=== PATIENT | female | born 1950 | race Caucasian/White ===

== ENCOUNTER → 2016-08-02 | Outpatient (CLI) | payer MEDICARE, OTHER ==
[~2016-08-02] MED LIST: CALC500T49 PO; LIPI20TA PO; MULT1TAB10 PO; VITA500046 PO
[2016-08-02 17:34] LABS: CALCIUM LEVEL 9.4 MG/DL (8.8-10.2)
== END ==
LOC: M WUC 12:34
PROVIDERS: ATTEND Physician Assistant Medical
DX: M81.0 Age-related osteoporosis without current pathological fracture (principal); E55.9 Vitamin D deficiency, unspecified

== ENCOUNTER → 2016-08-10 | Outpatient (CLI) | payer MEDICARE, OTHER ==
[~2016-08-10] VITALS: Ht 152.4 cm; Wt 57.6 kg
[~2016-08-10] MED LIST changes: +GLYCOPYRROLATE INJ 0.2 MG/ML 2 ML VIAL As Ordered ONE; +LIDOCAINE 2% INJ 100 MG/5 ML SDV (FOR ANES.) As Ordered ONE; +LR 1,000 ML IV SCH; +PROPOFOL 200 MG/20 ML VIAL As Ordered ONE
[2016-08-10 13:10] VITALS: BP 136/81
--- NOTE | 2016-08-10 13:15 | ROOR ---
Patient Name: Kalee Monroe Procedure Date: 08/10/2016 12:15 PM Date of : 1950 Age: 65 Room: [facility] Gender: Female Note Status: Finalized Procedure: Colonoscopy Indications: Screening for colorectal malignant neoplasm, Last colonoscopy: 2010 Providers: Aldair Suarez MD Referring MD: Светлана Abbott DO Requesting Provider: Medicines: Monitored Anesthesia Care Complications: No immediate complications. Procedure: Pre-Anesthesia Assessment: - Prior to the procedure, a History and Physical was performed, and patient medications and allergies were reviewed. The patient is competent. The risks and benefits of the procedure and the sedation options and risks were discussed with the patient. All questions were answered and informed consent was obtained. Patient identification and proposed procedure were verified by the physician, the nurse and the anesthesiologist in the procedure room. Mental Status Examination: alert and oriented. Airway Examination: normal oropharyngeal airway and neck mobility. CV Examination: regular rate and rhythm. Prophylactic Antibiotics: The patient does not require prophylactic antibiotics. Prior Anticoagulants: The patient has taken no previous anticoagulant or antiplatelet agents. ASA Grade Assessment: II - A patient with mild systemic disease. After reviewing the risks and benefits, the patient was deemed in satisfactory condition to undergo the procedure. The anesthesia plan was to use monitored anesthesia care (MAC). Immediately prior to administration of medications, the patient was re-assessed for adequacy to receive sedatives. The heart rate, respiratory rate, oxygen saturations, blood pressure, adequacy of pulmonary ventilation, and response to care were monitored throughout the procedure. The physical status of the patient was re-assessed after the procedure. The was introduced through the anus and advanced to the cecum, identified by appendiceal orifice and ileocecal valve. The colonoscopy was performed without difficulty. The patient tolerated the procedure well. The quality of the bowel preparation was good. Findings: The perianal exam findings include non-thrombosed external hemorrhoids. The colon (entire examined portion) appeared normal. Impression: - Non-thrombosed external hemorrhoids found on perianal exam. - The entire examined colon is normal. - No specimens collected. Recommendation: - Discharge patient to home. - Resume previous diet. - Continue present medications. - Repeat colonoscopy in 5-10 years for screening purposes. Aldair Suarez MD 08/10/2016 1:15:07 PM Number of Addenda: 0 Note Initiated On: 08/10/2016 12:15 PM Estimated Blood Loss: Estimated blood loss: none.
== END | disposition home or self-care (01) ==
LOC: M OPP 10:47
PROVIDERS: ATTEND Surgery
DX: Z12.11 Encounter for screening for malignant neoplasm of colon (principal); K64.4 Residual hemorrhoidal skin tags; E78.5 Hyperlipidemia, unspecified; E04.1 Nontoxic single thyroid nodule; K44.9 Diaphragmatic hernia without obstruction or gangrene; K59.00 Constipation, unspecified; R10.9 Unspecified abdominal pain; R12 Heartburn; M81.0 Age-related osteoporosis without current pathological fracture; Z78.0 Asymptomatic menopausal state; F41.9 Anxiety disorder, unspecified; R06.83 Snoring; Z88.1 Allergy status to other antibiotic agents; Z88.8 Allergy status to other drugs, medicaments and biological substances; Z79.899 Other long term (current) drug therapy
CPT/HCPCS: 99156; 99157; G0121

== ENCOUNTER → 2016-08-24 | Outpatient (CLI) | payer MEDICARE, OTHER ==
[~2016-08-24] MED LIST changes: -GLYCOPYRROLATE INJ 0.2 MG/ML 2 ML VIAL As Ordered ONE; -LIDOCAINE 2% INJ 100 MG/5 ML SDV (FOR ANES.) As Ordered ONE; -LR 1,000 ML IV SCH; -PROPOFOL 200 MG/20 ML VIAL As Ordered ONE
== END ==
LOC: M WUC 13:04
PROVIDERS: ATTEND Family Medicine
DX: R53.81 Other malaise (principal)

== ENCOUNTER → 2017-02-02 | Outpatient (REF) | payer MEDICARE, OTHER ==
[2017-02-02 13:18] LABS: CALCIUM LEVEL 10.2 MG/DL (8.8-10.2)
== END ==
LOC: M LABDRAW1 11:30
PROVIDERS: ATTEND Internal Medicine Endocrinology, Diabetes & Metabolism
DX: M81.0 Age-related osteoporosis without current pathological fracture (principal)

== ENCOUNTER → 2017-08-17 | Outpatient (CLI) | payer MEDICARE, OTHER ==
[2017-08-17 12:08] LABS: CALCIUM LEVEL 9.7 MG/DL (8.8-10.2)
== END ==
LOC: M LAB 10:52
DX: M81.0 Age-related osteoporosis without current pathological fracture (principal)
CPT/HCPCS: 82310

== ENCOUNTER → 2017-12-08 | Outpatient (REF) | payer MEDICARE, OTHER | LOC: M LAB REF 15:36 | DX: L08.9 Local infection of the skin and subcutaneous tissue, unspecified (principal) | CPT/HCPCS: 87186 ==

== ENCOUNTER → 2018-02-27 | Outpatient (CLI) | payer MEDICARE, OTHER ==
[2018-02-27 13:17] LABS: CALCIUM LEVEL 9.5 MG/DL (8.8-10.2)
[2018-02-27 13:33] LABS: TOTAL 25(OH) VITAMIN D 44.1 NG/ML (30.0-100.0)
== END ==
LOC: M WUC 10:43
DX: M81.0 Age-related osteoporosis without current pathological fracture (principal); E55.9 Vitamin D deficiency, unspecified
CPT/HCPCS: 82310

== ENCOUNTER → 2018-08-24 | Outpatient (REF) | payer MEDICARE, OTHER | LOC: M LABDRAW1 16:02 → M LAB REF 16:02 | PROVIDERS: ATTEND Internal Medicine Endocrinology, Diabetes & Metabolism | DX: M81.0 Age-related osteoporosis without current pathological fracture (principal) ==

== ENCOUNTER → 2019-02-19 | Outpatient (CLI) | payer MEDICARE, OTHER ==
[2019-02-19 16:35] LABS: CALCIUM LEVEL 10.1 MG/DL (8.8-10.2)
[2019-02-19 16:47] LABS: TOTAL 25(OH) VITAMIN D 48.8 NG/ML (30.0-100.0)
== END ==
LOC: M WUC 12:36
PROVIDERS: ATTEND Nurse Practitioner Family
DX: M81.0 Age-related osteoporosis without current pathological fracture (principal)

== ENCOUNTER → 2020-10-27 | Outpatient (CLI) | payer MEDICARE, BC ==
--- NOTE | 2020-10-27 14:24 | REP ---
INDICATION: RT HIP TROCHANTERIC BURSITIS. COMPARISON: Comparison bilateral hip MRI exam is from January 22, 2015.. TECHNIQUE: Large [id number] coronal T1 and fat sat T2 images of both hips are acquired. Following this, smaller [id number] high-resolution images of the right hip were acquired in all 3 planes. FINDINGS: Cortical and medullary bone signal intensity are normal in the proximal femurs bilaterally. There is no evidence to suggest avascular necrosis. Diffuse cellular marrow changes seen. No bony destructive lesion is seen in the bony pelvic rim. There is a small subcortical cyst in the head neck junction region on the left. This is unchanged. Head neck junction morphology is otherwise normal. T2 weighted scans show no evidence of significant hip joint effusion on either side. There is however a sliver of fluid in the Sara trochanteric bursa and some adjacent T2 hyperintensity is seen on the right consistent with tendon 0 bursitis changes. This is somewhat more prominent than on the 2015 study. There is no evidence of acetabular labral cartilage tear. No juxta-articular cyst or mass is seen. Study is otherwise unremarkable. IMPRESSION: Sara trochanteric bursal fluid collection with some adjacent edema consistent with tendon 0 bursitis changes. This is more pronounced than on the 2015 prior study. No bony destructive lesion is seen. No evidence of labral tear. <Electronically signed by Logan iHll > 10/27/20 [id number]
== END ==
LOC: M RAD 12:36
PROVIDERS: ATTEND Orthopaedic Surgery
DX: M70.61 Trochanteric bursitis, right hip (principal)

== ENCOUNTER → 2021-01-06 | Outpatient (CLI) | payer MEDICARE, BC ==
--- NOTE | 2021-01-06 13:16 | DEXAMM ---
INDICATION: AGE RELATED OSTEOPOROSIS W/O CURRENT PATHOLOGICAL FX. COMPARISON: Comparison study December 28, 2018. TECHNIQUE: Bone density was measured using dual-energy x-ray absorptionmetry (DEXA). FINDINGS: AP SPINE L1-L4 BMD 1.008 g/cm2 Young Adult T-Score -1.5 Age Matched Z-Score 0.2. LT FEMUR, TOTAL BMD 0.796 g/cm2 Young Adult T-Score -1.7 Age Matched Z-Score -0.1. LT NECK BMD 0.659 g/cm2 Young Adult T-Score -2.7 Age Matched Z-Score -0.9. RT FEMUR, TOTAL BMD 0.844 g/cm2 Young Adult T-Score -1.3 Age Matched Z-Score 0.3. RT NECK BMD 0.739 g/cm2 Young Adult T-Score -2.2 Age Matched Z-Score -0.4. IMPRESSION: There is low bone density of the spine. There is osteoporosis of the left hip. There is low bone density of the right hip. The density of the spine has increased 19.4% since the initial exam on December 19, 2012. The density of the spine increased 2.0% since most recent exam on December 28, 2018. The density of the left hip has increased 11.2% since initial exam on December 23, 2014. The density of the left hip has increased 1.1% since most recent exam on December 28, 2018. The density of the right hip has increased 9.3% since the initial exam on December 23, 2014. The density of the right hip has increased 2.3% since the most recent exam on December 28, 2018. FOLLOW-UP: Recommendation for the next bone density exam: 2 years. <Electronically signed by Logan Hill > 01/06/21 [id number]
== END ==
LOC: M WHC 11:15
PROVIDERS: ATTEND Internal Medicine Endocrinology, Diabetes & Metabolism
DX: M81.0 Age-related osteoporosis without current pathological fracture (principal); M85.851 Other specified disorders of bone density and structure, right thigh; M85.88 Other specified disorders of bone density and structure, other site

== ENCOUNTER 2024-06-20 11:00 | Emergency (ER) | payer MEDICARE, BC ==
[~2024-06-20] VITALS: Ht 149.9 cm; Wt 56.8 kg
[2024-06-20 12:03] LABS: HEMATOCRIT 42.8 % (36.0-47.0); HEMOGLOBIN 14.9 g/dl (12.0-15.5); MEAN CORPUSCULAR HEMOGLOBIN 31.3 pg (27.0-33.0); MEAN CORPUSCULAR HGB CONC 34.8 g/dl (32.0-36.5); MEAN CORPUSCULAR VOLUME 89.9 fl (80.0-96.0); PLATELET COUNT, AUTOMATED 349 10^3/uL (150-450); RED BLOOD COUNT 4.76 10^6/uL (4.00-5.40); WHITE BLOOD COUNT 8.9 10^3/uL (4.0-10.0)
[2024-06-20] MEDS: ACETAMINOPHEN *IV* 1,000 MG in IV 1 EA IV ONE (12:18)
[2024-06-20 12:28] LABS: BLOOD UREA NITROGEN 12 MG/DL (9-23); CALCIUM LEVEL 9.8 MG/DL (8.3-10.6); CARBON DIOXIDE LEVEL 26 MMOL/L (20-31); CHLORIDE LEVEL 107 MMOL/L (98-107); CREATININE FOR GFR 0.77 MG/DL (0.55-1.30); GLOMERULAR FILTRATION RATE > 60.0 (>39); GLUCOSE, FASTING 102 MG/DL (74-106); POTASSIUM SERUM 4.2 MMOL/L (3.5-5.1); SODIUM LEVEL 145 MMOL/L (136-145)
[2024-06-20] MEDS: KETOROLAC 30 MG/ML 1ML VIAL IV ONE (17:02)
[2024-06-20 17:56] VITALS: BP 154/75; TEMP 97; O2SAT 97
== END 2024-06-20 17:59 | disposition home or self-care (01) ==
LOC: EDBD 11:00 → M ED 11:00
DX: S82.62XA Displaced fracture of lateral malleolus of left fibula, initial encounter for closed fracture (principal); W10.8XXA Fall (on) (from) other stairs and steps, initial encounter; Y92.009 Unspecified place in unspecified non-institutional (private) residence as the place of occurrence of the external cause; Y93.01 Activity, walking, marching and hiking; Y99.9 Unspecified external cause status; Z79.899 Other long term (current) drug therapy; Z88.6 Allergy status to analgesic agent; Z88.1 Allergy status to other antibiotic agents
CPT/HCPCS: 73564; 73590; 73610; 80048; 85027; 86850; 86900; 86901; 96374; 96375; 99284; J0131; J1885

== ENCOUNTER → 2024-06-26 | Outpatient (CLI) | payer MEDICARE, BC | LOC: M SOG 07:52 | PROVIDERS: ATTEND Physician Assistant | DX: S82.832D Other fracture of upper and lower end of left fibula, subsequent encounter for closed fracture with routine healing (principal) ==

== ENCOUNTER → 2024-07-18 | Outpatient (CLI) | payer MEDICARE, BC | LOC: M SOG 07:54 | PROVIDERS: ATTEND Physician Assistant | DX: S82.832D Other fracture of upper and lower end of left fibula, subsequent encounter for closed fracture with routine healing (principal) ==

== ENCOUNTER → 2024-08-15 | Outpatient (CLI) | payer MEDICARE, BC | LOC: M WHC 12:16 | PROVIDERS: ATTEND Nurse Practitioner Family | DX: M81.0 Age-related osteoporosis without current pathological fracture (principal) ==

== ENCOUNTER → 2024-08-22 | Outpatient (CLI) | payer MEDICARE, BC | LOC: M SOG 07:53 | PROVIDERS: ATTEND Physician Assistant | DX: S82.832D Other fracture of upper and lower end of left fibula, subsequent encounter for closed fracture with routine healing (principal) ==